=== PATIENT | female | born 1965 | race Two or more races ===

== ENCOUNTER → 2017-05-14 | Outpatient (CLI) | payer OTHER ==
--- NOTE | 2017-05-14 14:22 | RAD ---
Right shoulder, 3 views, 05/14/2017: History: Shoulder injury and pain The bony structures are demineralized. No fracture or dislocation is identified. The width of the AC joint is at the upper limits of normal. IMPRESSION: No acute bony abnormality is detected.
== END | disposition home or self-care (01) ==
LOC: RAD 09:44
PROVIDERS: ATTEND Surgery
DX: S49.91XA Unspecified injury of right shoulder and upper arm, initial encounter (principal); X58.XXXA Exposure to other specified factors, initial encounter; Y93.89 Activity, other specified; Y92.89 Other specified places as the place of occurrence of the external cause; Y99.8 Other external cause status
CPT/HCPCS: 73030

== ENCOUNTER 2019-03-22 13:41 | Emergency (ER) | payer OTHER ==
[~2019-03-22] VITALS: Ht 162.6 cm; Wt 79.4 kg
[2019-03-22] MEDS ORDERED: MORPHINE SULFATE 10 MG/ML VIAL. SQ ONE (14:30)
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
[2019-03-22] MEDS ORDERED: NAPR-683 PO (16:28)
[2019-03-22] MEDS ORDERED: HYDR-3164 PO (16:28)
[2019-03-22] MEDS ORDERED: CYCL10TA2 PO (16:28)
[2019-03-22 16:56] VITALS: BP 170/106
== END 2019-03-22 16:58 | disposition home or self-care (01) ==
LOC: ER 13:41
DX: S16.1XXA Strain of muscle, fascia and tendon at neck level, initial encounter (principal); S29.012A Strain of muscle and tendon of back wall of thorax, initial encounter; S09.8XXA Other specified injuries of head, initial encounter; V43.62XA Car passenger injured in collision with other type car in traffic accident, initial encounter; Y93.89 Activity, other specified; Y92.410 Unspecified street and highway as the place of occurrence of the external cause; Y99.8 Other external cause status
CPT/HCPCS: 70450; 72125; 72128; 96372; 99284; J2270

== ENCOUNTER 2019-11-12 12:24 | Emergency (ER) | payer OTHER ==
[~2019-11-12] VITALS: Ht 162.6 cm; Wt 79.4 kg
[~2019-11-12 12:24] MED LIST: CYCL10TA2 PO; HYDR-3164 PO; NAPR-683 PO
[2019-11-12] MEDS ORDERED: fentaNYL PF VIAL 100 MCG/2 ML VIAL IVP ONE (12:45)
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
[2019-11-12 13:09] VITALS: BP 166/90
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
[2019-11-12] MEDS ORDERED: DICL50TA4 PO (13:29)
== END 2019-11-12 13:39 | disposition home or self-care (01) ==
LOC: ER 12:24
DX: S80.01XA Contusion of right knee, initial encounter (principal); S20.212A Contusion of left front wall of thorax, initial encounter; S40.011A Contusion of right shoulder, initial encounter; R51 Headache; R07.89 Other chest pain; E05.90 Thyrotoxicosis, unspecified without thyrotoxic crisis or storm; Z98.890 Other specified postprocedural states; V89.2XXA Person injured in unspecified motor-vehicle accident, traffic, initial encounter; W22.10XA Striking against or struck by unspecified automobile airbag, initial encounter; Y93.89 Activity, other specified; Y92.488 Other paved roadways as the place of occurrence of the external cause; Y99.8 Other external cause status
CPT/HCPCS: 70450; 71045; 72125; 73030; 73562; 96374; 99284; J3010